=== PATIENT | female | born 1945 | race Caucasian/White ===

== ENCOUNTER 2022-04-20 18:53 | Emergency (ER) | payer MEDICARE ==
[2022-04-20] MEDS ORDERED: MORPHINE 2 MG SYG IVP SCH (20:30)
[2022-04-20 20:38] LABS: BASOPHILS % (AUTO) 0.2 % (0.0-5.0); EOSINOPHILS % (AUTO) 0.2 % (0.0-8.0); HEMATOCRIT 43.5 % (36-48); LYMPHOCYTES % (AUTO) 12.9 % (21.0-51.0); MEAN CORPUSCULAR HEMOGLOBIN 29.2 pg (27.0-33.0); MEAN CORPUSCULAR HGB CONC 32.6 g/dL (32.0-36.0); MEAN CORPUSCULAR VOLUME 89.5 fL (79-99); MONOCYTES % (AUTO) 6.2 % (3.0-13.0); NEUTROPHILS % (AUTO) 79.9 % (40.0-77.0); PLATELET COUNT (AUTO) 209 K/uL (130-400); RED BLOOD CELL COUNT(AUTO) 4.86 MIL/uL (4.00-5.50); RED CELL DISTRIBUTION WIDTH 13.8 % (11.0-15.5); WHITE BLOOD COUNT (AUTO) 12.5 K/uL (4.8-10.8)
[2022-04-20 20:45] LABS: POTASSIUM 3.6 mmol/L (3.5-5.1)
[2022-04-20 20:46] LABS: INR 0.93 (0.85-1.15); PROTHROMBIN TIME 9.8 SEC (9.6-11.6)
[2022-04-20 20:48] LABS: PARTIAL THROMBOPLASTIN TIME 21.4 SEC (26.3-35.5)
[2022-04-20 20:51] LABS: ALBUMIN 3.7 g/dL (3.5-5.0); TOTAL PROTEIN, SERUM 7.4 g/dL (6.0-8.3)
[2022-04-20] MEDS ORDERED: HYDROMORPHONE 0.5 MG SYG (0.5MG/0.5ML) ONE (21:45)
[2022-04-20] MEDS ORDERED: HYDROMORPHONE 0.5 MG SYG (0.5MG/0.5ML) IVP SCH (22:00)
[2022-04-21] MEDS ORDERED: PROPOFOL 10 MG/ML 20ML VIAL IV SCH
[2022-04-21] MEDS ORDERED: HYDROMORPHONE 1 MG INJ IVP ONE
[2022-04-21] MEDS ORDERED: IBUP-1493 PO (01:50)
[2022-04-21 02:10] VITALS: BP 142/71
== END 2022-04-21 02:41 | disposition home or self-care (01) ==
LOC: EDH 18:53
DX: T84.021A Dislocation of internal left hip prosthesis, initial encounter (principal); Z96.651 Presence of right artificial knee joint; Z88.0 Allergy status to penicillin; W18.2XXA Fall in (into) shower or empty bathtub, initial encounter; Y79.2 Prosthetic and other implants, materials and accessory orthopedic devices associated with adverse incidents; Y93.E1 Activity, personal bathing and showering
CPT/HCPCS: 99291; 96374; 71045; 96375; 80053; 85025; 85610; 85730; 86850; 86900; 86901; 36415; 73502; 93005; 27250; 72170; 96376; J1170 ×2; J2704